=== PATIENT | female | born 1965 | race Caucasian/White ===

== ENCOUNTER 2017-02-10 13:17 | Emergency (ER) | payer OTHER ==
[~2017-02-10] VITALS: Ht 170.2 cm; Wt 75.7 kg
[~2017-02-10 13:17] MED LIST: PARO10TA26; PREMPRO
[2017-02-10 13:20] VITALS: BP_SYST 124
--- NOTE | 2017-02-10 13:25 | NUR ---
Pt placed to ER waiting room in stable condition.
--- NOTE | 2017-02-10 15:00 | NUR ---
Pt report received from MICHAEL Jo. Pt states that she has been having fevers and sore throat x 5 days. Pt currently afebrile.
--- NOTE | 2017-02-10 15:10 | NUR ---
Dr. Khanna assessing pt in Triage room.
[2017-02-10 15:30] VITALS: BP_SYST 126
--- NOTE | 2017-02-10 15:30 | NUR ---
Patient given written and verbal discharge instructions and verbalizes understanding. ER MD discussed with patient the results and treatment provided. Patient in stable condition. ID arm band removed. Rx of Augmentin, Tylenol, and Motrin given. Patient educated on pain management and to follow up with PMD. Pain Scale 0/10. Opportunity for questions provided and answered.
== END 2017-02-10 15:30 | disposition home or self-care (01) ==
LOC: SED 13:17
DX: J02.9 Acute pharyngitis, unspecified (principal)
CPT/HCPCS: 71010; 99283